=== PATIENT | male | born 1965 | race Caucasian/White ===

== ENCOUNTER 2024-10-05 13:58 | Inpatient (IN) | payer OTHER ==
[2024-10-05 14:38] LABS: Influenza A Ag Negative; Influenza B Ag Negative; SARS-CoV-2 Antigen Rapid Res Negative (Negative)
[2024-10-05 14:55] LABS: Absolute Lymphocytes (CBC) 0.5 K/uL (0.7-4.9); Absolute Monocytes 0.3 K/uL (0.1-1.3); Absolute Neutrophil 1.2 K/uL (1.8-8.0); Basophils % 0.7 % (0-1.3); Eosinophils % 0.2 % (0-4.4); Hematocrit 39.1 % (39.6-49.0); Hemoglobin 13.6 g/dL (13.6-17.9); Lymphocytes % 25.2 % (15.3-44.8); MCH 31.2 pg (27.0-35.0); MCHC 34.7 g/dL (32.0-36.0); MCV 89.7 fL (80-100); MPV 9.8 fL (7.6-11.3); Monocytes % 14.3 % (3.3-12.3); Neutrophils % 59.6 % (41.7-73.7); Nucleated Red Blood Cells % 0.2 % (0-0); Platelets 89 thou/uL (152-406); RBC Red Blood Cell Count 4.36 M/uL (4.33-5.43); Red Cell Distribution Width 13.4 % (12.1-15.2)
[2024-10-05 15:00] LABS: PT Prothrombin Time 13.4 SECONDS (10-13.0); Protime INR 1.18
--- NOTE | 2024-10-05 15:05 | RAD REPORT ---
EXAM: Chest Single View HISTORY: 59 years Male CHEST PAIN COMPARISON: None. FINDINGS: LUNGS/PLEURA: The lungs are clear. No pleural effusions or pneumothorax. No pulmonary edema. Calcifie d left midlung nodule. CARDIAC/MEDIASTINUM: The cardiac silhouette is within normal limits. UPPER ABDOMEN: No significant abnormality. BONES: No acute abnormality. LINES/TUBES/OTHER: Battery pack overlies the left hemithorax. IMPRESSION: No evidence of acute cardiopulmonary disease.
[2024-10-05 15:12] LABS: Albumin 3.5 g/dL (3.4-5.0); Anion Gap 9.8 mEq/L (5.0-15.0); Bilirubin Direct 0.2 mg/dL (0-0.2); Bilirubin Indirect, Calculated 0.4 mg/dL (0.2-0.8); Bilirubin Total 0.6 mg/dL (0.2-1.0); Globulin 3.6 g/dL (2.3-3.5); Magnesium 2.3 mg/dL (1.6-2.4); Potassium 3.8 mEq/L (3.5-5.1); Protein, Total 7.1 g/dL (6.4-8.2)
[2024-10-05] MEDS ORDERED: ASPIRIN 325 MG TAB ONE (15:25)
--- NOTE | 2024-10-05 15:28 | ER ---
Nurse's Notes [facility] Name: Devendra Vang Age: 59 yrs Sex: Male : 1965 Arrival Date: 10/05/2024 Time: 13:58 Bed 24 Private MD: Diagnosis: Chest pain, unspecified Presentation: 10/05 14:15 Chief complaint: Patient states: CP since Saturday with cough. Coronavirus screen: ss Client denies travel out of the [place] in the last 14 days. cough unrelated to allergies, difficulty breathing, fatigue, Client presents with at least one sign or symptom that may indicate coronavirus-19. Standard/surgical mask placed on the client. Ebola Screen: Patient denies travel to an Ebola-affected area in the 21 days before illness onset. Initial Sepsis Screen: Does the patient meet any 2 criteria? No. Patient's initial sepsis screen is negative. Does the patient have a suspected source of infection? No. Patient's initial sepsis screen is negative. Risk Assessment: Do you want to hurt yourself or someone else? Patient reports no desire to harm self or others. Onset of symptoms was September 30, 2024. 14:15 Method Of Arrival: Ambulatory 14:15 Acuity: RAMA 3 ss Historical: - Allergies: 14:09 No Known Allergies; ll1 - PMHx: 14:09 Hypertensive disorder; Myocardial infarction; ll1 - PSHx: 14:09 3 heart stents; ll1 - Immunization history:: Adult Immunizations up to date. - Social history:: Smoking status: . Screenin:[facility] ED Fall Risk Assessment (Adult) History of falling in the last 3 months, jb4 including since admission No falls in past 3 months (0 pts) Confusion or Disorientation No (0 pts) Intoxicated or Sedated No (0 pts) Impaired Gait No (0 pts) Mobility Assist Device Used No (0 pt) Altered Elimination No (0 pt) Score/Fall Risk Level 0 - 2 = Low Risk Oriented to surroundings, Maintained a safe environment. Abuse screen: Denies threats or abuse. Nutritional screening: No deficits noted. Tuberculosis screening: No symptoms or risk factors identified. Assessment: 15:21 General: Appears in no apparent distress. comfortable, Behavior is calm, cooperative, jb4 appropriate for age. Pain: Complains of pain in xiphoid area Pain radiates to back Pain currently is 5 out of 10 on a pain scale. Quality of pain is described as pressure. Neuro: Level of Consciousness is awake, alert, obeys commands, Oriented to person, place, time, situation. Cardiovascular: Patient's skin is warm and dry. Rhythm is sinus rhythm. Respiratory: Airway is patent Respiratory effort is even, unlabored, Respiratory pattern is regular, symmetrical. Derm: Skin is intact, Skin is pink, warm \T\ dry. Musculoskeletal: Circulation, motion, and sensation intact. Range of motion: intact in all extremities. Vital Signs: 14:15 BP 102 / 65; Pulse 75; Resp 18; Temp 98.6; Pulse Ox 96% on R/A; ss 15:21 BP 104 / 68; Pulse 69; Resp 16; Pulse Ox 98% ; jb4 16:30 BP 86 / 66; Pulse 65; Resp 16; Pulse Ox 97% on R/A; jb4 17:30 BP 101 / 57; Pulse 60; Resp 16; Pulse Ox 97% on R/A; jb4 18:30 BP 97 / 68; Pulse 59; Resp 16; Pulse Ox 97% on R/A; jb4 19:15 BP 104 / 70; Pulse 59; Resp 16; Pulse Ox 98% on R/A; jb4 19:30 BP 111 / 69; Pulse 59; Resp 15; Pulse Ox 97% on R/A; jb4 16:30 Hospitalist notified, see MAR for orders jb4 ED Course: 14:08 Patient arrived in ED. ll1 14:08 Daniella Stephen MD is Attending Physician. sp3 14:08 Arm band placed on. EKG completed in triage. Results shown to . ll1 14:13 COVID-19 Ag + Flu A+B Ag Sent. kb4 14:16 Triage completed. ss 14:47 Initial lab(s) drawn, by me, sent to lab. Inserted saline lock: 20 gauge in right kb4 antecubital area, using aseptic technique. Blood collected. Flushed with 10 mL NS. 14:51 XRAY Chest (1 view) In Process Unspecified. EDMS 15:21 Rc Grayson, RN is Primary Nurse. jb4 15:21 Patient has correct armband on for positive identification. Bed in low position. Call jb4 light in reach. Side rails up X 1. Provided Education on: need for admit. Client placed on continuous cardiac and pulse oximetry monitoring. NIBP monitoring applied. instructor programmable controllers on. Pulse ox on. 15:21 No provider procedures requiring assistance completed. Patient admitted, IV remains in jb4 place. Patient maintains SpO2 saturation greater than 95% on room air. 15:28 Yi Trotter MD is Hospitalizing Provider. sp3 Administered Medications: 15:27 Drug: Aspirin PO 325 mg PO once Route: PO; jb4 16:47 Drug: NS 0.9% IV 500 ml IV at bolus once; to be given as a bolus over 30 minutes Route: jb4 IV; Rate: bolus; Site: right antecubital; 20:24 Follow up: Response: No adverse reaction; Blood pressure is elevated; IV Status: jb4 Completed infusion Medication: 19:15 VIS not applicable for this client. jb4 Outcome: 15:28 Decision to Hospitalize by Provider. sp3 16:47 Admitted to ER Hold. Please see [facility] for further documentation. jb4 16:47 Condition: stable 16:47 Discharge instructions given to patient, Instructed on the need for admit, Demonstrated understanding of instructions, 20:25 Patient left the ED. jb4 Signatures: Dispatcher [employer] EDMS Lata Crowell, SERGIO RN Rc Marin RN RN jb4 Heidi Mills RN RN ll1 Daniella Stephen MD MD sp3 Vandana Moreira kb4
--- NOTE | 2024-10-05 15:28 | EDPHYS ---
Physician Documentation [facility] Name: Devendra Vang Age: 59 yrs Sex: Male : 1965 Arrival Date: 10/05/2024 Time: 13:58 Bed 24 Private MD: ED Physician Daniella Stephen HPI: 10/05 15:25 This 59 yrs old Unknown Male presents to ER via Ambulatory with complaints of Chest sp3 Pain, Painful Cough. 15:25 59-year-old male with history of hypertension, MA, multiple cardiac stents placed last sp3 year at [facility] in August 2023 now presents to the ED with chest pain off and on for the last 2 to 3 days particularly with exertion or work. Currently chest pain is 0-2 waxing and waning. He denies any associated symptoms other than dyspnea on exertion. ROS otherwise negative.. Historical: - Allergies: 14:09 No Known Allergies; ll1 - PMHx: 14:09 Hypertensive disorder; Myocardial infarction; ll1 - PSHx: 14:09 3 heart stents; ll1 - Immunization history:: Adult Immunizations up to date. - Social history:: Smoking status: . ROS: 15:26 Constitutional: Negative for fever, chills, and weight loss, Eyes: Negative for injury, sp3 pain, redness, and discharge, ENT: Negative for injury, pain, and discharge, Neck: Negative for injury, pain, and swelling, Abdomen/GI: Negative for abdominal pain, nausea, vomiting, diarrhea, and constipation, Back: Negative for injury and pain, MS/Extremity: Negative for injury and deformity, Skin: Negative for injury, rash, and discoloration, Neuro: Negative for headache, weakness, numbness, tingling, and seizure, Psych: Negative for depression, anxiety, suicide ideation, homicidal ideation, and hallucinations, Allergy/Immunology: Negative for hives, rash, and allergies, Endocrine: Negative for neck swelling, polydipsia, polyuria, polyphagia, and marked weight changes, Hematologic/Lymphatic: Negative for swollen nodes, abnormal bleeding, and unusual bruising, 15:26 All other systems are negative, Exam: 15:27 Constitutional: This is a well developed, well nourished patient who is awake, alert, sp3 and in no acute distress. Head/Face: Normocephalic, atraumatic. Eyes: Pupils equal round and reactive to light, extra-ocular motions intact. Lids and lashes normal. Conjunctiva and sclera are non-icteric and not injected. Cornea within normal limits. Periorbital areas with no swelling, redness, or edema. Neck: Trachea midline, no thyromegaly or masses palpated, and no cervical lymphadenopathy. Supple, full range of motion without nuchal rigidity, or vertebral point tenderness. No Meningismus. Chest/axilla: Normal chest wall appearance and motion. Nontender with no deformity. No lesions are appreciated. Cardiovascular: Regular rate and rhythm with a normal S1 and S2. No gallops, murmurs, or rubs. Normal PMI, no JVD. No pulse deficits. Respiratory: Lungs have equal breath sounds bilaterally, clear to auscultation and percussion. No rales, rhonchi or wheezes noted. No increased work of breathing, no retractions or nasal flaring. Abdomen/GI: Soft, non-tender, with normal bowel sounds. No distension or tympany. No guarding or rebound. No evidence of tenderness throughout. Back: No spinal tenderness. No costovertebral tenderness. Full range of motion. Skin: Warm, dry with normal turgor. Normal color with no rashes, no lesions, and no evidence of cellulitis. MS/ Extremity: Pulses equal, no cyanosis. Neurovascular intact. Full, normal range of motion. Neuro: Awake and alert, GCS 15, oriented to person, place, time, and situation. Cranial nerves II-XII grossly intact. Motor strength 5/5 in all extremities. Sensory grossly intact. Cerebellar exam normal. Normal gait. Psych: Awake, alert, with orientation to person, place and time. Behavior, mood, and affect are within normal limits. 15:27 ECG was reviewed by the Attending Physician. EKG demonstrates normal sinus rhythm at 74 bpm with normal intervals, normal QRS, normal axis, T wave inversions inferiorly in leads III and aVF and nonspecific diffuse ST/T changes. Vital Signs: 14:15 BP 102 / 65; Pulse 75; Resp 18; Temp 98.6; Pulse Ox 96% on R/A; ss 15:21 BP 104 / 68; Pulse 69; Resp 16; Pulse Ox 98% ; jb4 16:30 BP 86 / 66; Pulse 65; Resp 16; Pulse Ox 97% on R/A; jb4 17:30 BP 101 / 57; Pulse 60; Resp 16; Pulse Ox 97% on R/A; jb4 18:30 BP 97 / 68; Pulse 59; Resp 16; Pulse Ox 97% on R/A; jb4 19:15 BP 104 / 70; Pulse 59; Resp 16; Pulse Ox 98% on R/A; jb4 19:30 BP 111 / 69; Pulse 59; Resp 15; Pulse Ox 97% on R/A; jb4 16:30 Hospitalist notified, see MAR for orders jb4 MDM: 14:10 Medical Screening Exam initiated sp3 15:27 Data reviewed: vital signs, nurses notes, lab test result(s), EKG, radiologic studies. sp3 ED course: 59-year-old male with chest pain. Differential diagnosis includes acute coronary syndrome, musculoskeletal pain, angina, GI related, among others. I am not highly suspicious of sepsis or shock. EKG shows no STEMI. Will place in observation for continued monitoring, cardiology consultation and serial troponin and EKGs.. 10/05 14:11 Order name: Basic Metabolic Panel; Complete Time: 15:14 sp3 10/05 14:11 Order name: CBC with Diff; Complete Time: 16:01 sp3 10/05 14:11 Order name: LFT's; Complete Time: 15:14 sp3 10/05 14:11 Order name: Magnesium; Complete Time: 15:14 sp3 10/05 14:11 Order name: NT PRO-BNP; Complete Time: 15:14 sp3 10/05 14:11 Order name: PT-INR; Complete Time: 15:06 sp3 10/05 14:11 Order name: Troponin HS; Complete Time: 15:14 sp3 10/05 14:11 Order name: COVID-19 Ag + Flu A+B Ag; Complete Time: 15:06 sp3 10/05 15:56 Order name: CBC Smear Scan; Complete Time: 16:01 EDMS 10/05 16:23 Order name: Basic Metabolic Panel EDMS 10/05 16:23 Order name: Basic Metabolic Panel EDMS 10/05 16:23 Order name: Basic Metabolic Panel EDMS 10/05 16:23 Order name: Basic Metabolic Panel EDMO 10/05 16:23 Order name: Basic Metabolic Panel EDMS 10/05 16:23 Order name: CBC with Automated Diff EDMS 10/05 16:23 Order name: CBC with Automated Diff EDMS 10/05 16:23 Order name: CBC with Automated Diff EDMS 10/05 16:23 Order name: CBC with Automated Diff EDMS 10/05 16:23 Order name: CBC with Automated Diff EDMS 10/05 16:23 Order name: T4 Free EDMS 10/05 16:23 Order name: T4 Free EDMS 10/05 16:23 Order name: Thyroid Stimulating Hormone EDMS 10/05 16:23 Order name: Thyroid Stimulating Hormone EDMS 10/05 16:23 Order name: Troponin High Sensitivity EDMS 10/05 16:23 Order name: Troponin High Sensitivity; Complete Time: 20:14 EDMS 10/05 16:23 Order name: Troponin High Sensitivity EDMS 10/05 14:11 Order name: XRAY Chest (1 view); Complete Time: 15:06 sp3 10/05 16:20 Order name: Echo with Doppler EDMS 10/05 14:11 Order name: EKG; Complete Time: 14:11 sp3 10/05 14:11 Order name: Cardiac monitoring; Complete Time: 15:16 sp3 10/05 14:11 Order name: EKG - Nurse/Tech; Complete Time: 14:12 sp3 10/05 14:11 Order name: IV Saline Lock; Complete Time: 15:16 sp3 10/05 14:11 Order name: Labs collected and sent; Complete Time: 15:16 sp3 10/05 14:11 Order name: O2 Per Protocol; Complete Time: 15:16 sp3 10/05 14:11 Order name: O2 Sat Monitoring; Complete Time: 15:16 sp3 Administered Medications: 15:27 Drug: Aspirin PO 325 mg PO once Route: PO; jb4 16:47 Drug: NS 0.9% IV 500 ml IV at bolus once; to be given as a bolus over 30 minutes Route: jb4 IV; Rate: bolus; Site: right antecubital; 20:24 Follow up: Response: No adverse reaction; Blood pressure is elevated; IV Status: jb4 Completed infusion Disposition Summary: 10/05/24 15:28 Hospitalization Ordered Notes: Hospitalization Status: Observation sp3 Provider: Yi Trotter sp3 Condition: Stable sp3 Problem: an acute exacerbation sp3 Symptoms: have worsened sp3 Bed/Room Type: Standard sp3 Location: Telemetry/MedSurg (observation)(10/05/24 19:10) [facility] Room Assignment: [facility](10/05/24 19:10) [facility] Diagnosis - Chest pain, unspecified sp3 Forms: - Medication Reconciliation Form sp3 - SBAR form sp3 - Leadership Thank You Letter sp3 Signatures: Dispatcher [employer] EDMS Lata Crowell, RN RN ss Rc Grayson RN RN jb4 Heidi Mills RN RN ll1 Daniella Stephen MD MD sp3 Betzaida Galarza RN RN kb3 Serafin Carlson MD MD 2 Lisette Gillespie [facility] Corrections: (The following items were deleted from the chart) 14:11 14:11 BASIC METABOLIC PANEL+C.LAB.BRZ ordered. EDMS EDMS 14:11 14:11 CBC+H.LAB.BRZ ordered. EDMS EDMS 14:11 14:11 HEPATIC FUNCTION+C.LAB.BRZ ordered. EDMS EDMS 14:11 14:11 MAGNESIUM+C.LAB.BRZ ordered. EDMS EDMS 14:11 14:11 PROBNP+C.LAB.BRZ ordered. EDMS EDMS 14:11 14:11 PROTIME (+INR)+COAG.LAB.BRZ ordered. EDMS EDMS 14:11 14:11 Troponin High Sensitivity+C.LAB.BRZ ordered. EDMS EDMS 14:11 14:11 COVID-19 Ag + Flu A+B Ag+I.LAB.BRZ ordered. EDMS EDMS 16:20 15:28 Telemetry/MedSurg (observation) sp3 kb3 16:20 15:28 sp3 kb3 19:10 16:20 [facility] ER HOLD kb3 kmf 19:10 16:20 ERHOLD- kb3 kmf
[2024-10-05 15:56] LABS: Blood Morphology Comment NOT SEEN (NOT SEEN); Platelet Estimate DECR; White Blood Cell Scan OK (OK)
[2024-10-05] MEDS ORDERED: NA CHLORIDE 0.9% 500 ML ONE (16:43)
--- NOTE | 2024-10-05 17:04 | P.HP ---
Certification for Inpatient Patient admitted to: Observation With expected LOS: <2 Midnights Patient will require the following post-hospital care: None Practitioner: I am a practitioner with admitting privileges, knowledge of patient current condition, hospital course, and medical plan of care. Services: Services provided to patient in accordance with Admission requirements found in Title 42 Section 412.3 of the Code of Federal Regulations <Tomy Scott - Last Filed: 10/05/24 17:01> Patient History Date of Service: 10/05/24 Reason for admission: Chest pain History of Present Illness: 59-year-old male with history of hypertension, CAD, lupus, seizure disorder presents to the emergency department chief complaint of chest pain, shortness of breath. He reports that symptoms have been intermittent in nature and ongoing since late last week worse the past couple of days. Of note he was seen at [facility] in [place] and had 3 stents placed in August 2023. He was evaluated in the emergency department his initial high-sensitivity troponin was 24 chest x-ray is negative for acute findings, patient does have t hrombocytopenia with a platelet count of 89 he reports this is similar to his baseline. Chest x-ray is negative for acute findings, ED provider wishes to admit patient for further evaluation and management. - Past Medical/Surgical History -: Lupus -: CAD -: Hypertension -: Neuropathy -: Seizure disorder -: Vagal nerve stimulator -: Brain surgery-trauma -: Orthopedic surgeries Psychosocial/ Personal History: Lives at home, alone - Social History Alcohol use: No CD- Drugs: No Caffeine use: Yes Place of Residence: Home <Tomy Scott - Last Filed: 10/05/24 17:01> Date of Service: 10/05/24 <Yi Trotter - Last Filed: 10/11/24 00:17> Review of Systems 10-point ROS is otherwise unremarkable Respiratory: Shortness of Breath Cardiovascular: Chest Pain <Tomy Scott - Last Filed: 10/05/24 17:01> Physical Examination - Physical Exam General: Alert, In no apparent distress, Oriented x3 HEENT: Atraumatic, PERRLA, EOMI Neck: Supple, 2+ carotid pulse no bruit, No LAD Respiratory: Clear to auscultation bilaterally, Normal air movement Cardiovascular: Regular rate/rhythm, Normal S1 S2 Gastrointestinal: Normal bowel sounds Neurological: Normal gait, Normal speech, Normal strength at 5/5 x4 extr, Normal tone, Normal affect Lymphatics: No axilla or inguinal lymphadenopathy - Studies Laboratory Data (last 24 hrs) 10/05/24 10/05/24 10/05/24 14:45 14:45 14:45 WBC 2.10 L Hgb 13.6 Hct 39.1 L Plt Count 89 L PT 13.4 H INR 1.18 Sodium 135 L Potassium 3.8 BUN 13 Creatinine 1.19 Glucose 114 H Magnesium 2.3 Total Bilirubin 0.6 AST 21 ALT 17 Alkaline Phosphatase 79 <Tomy Scott - Last Filed: 10/05/24 17:01> Assessment and Plan - Plan Assessment: Chest pain rule out ACShistory of CAD Lupus Thrombocytopenia Seizure disorder Hypertension Hyperlipidemia Neuropathy Plan: Chest pain rule out ACShistory of CAD Had 3 stents in August 2023 at [facility] Continue Effient, aspirin, statin, metoprolol Questionable history of CHF, he does take Entresto but not on any diuretics No previous echo is available for review, echocardiogram ordered Cardiology consulted will trend troponins and monitor on telemetry Pain-free at this time Lupus Thrombocytopenia Near baseline platelets per patient Continue CellCept, will need to take his own Daily CBC Seizure disorder Continue XCOPI Patient will need to take his own as we do not have this medication Last seizure around 1 month ago Hypertension Hyperlipidemia Neuropathy Home medications continued with hold parameters DVT PPX: SCDs given thrombocytopenia Code status: Full code Discharge Plan: Home Plan to discharge in: 24 Hours - Advance Directives Does patient have a Living Will: No Does patient have a Durable POA for Healthcare: No - Code Status/Comfort Care Code Status Assessed: Yes (Full code) Critical Care: No Time Spent Managing Pts Care (In Minutes): 65 <Tomy Scott - Last Filed: 10/05/24 17:01> Date of Service: 10/05/24 Patient was seen and examined. Events of the last 24 hours have been noted. Spoke with with CARTER regarding patient's clinical picture after evaluating and examining the patient independently. I performed a substantial part of the MDM during this patient's care today. I personally made or approved the documented management plan and acknowledge its risk of complications. I agree with the findings and documentation provided in the CARTER's notes. <Yi Trotter - Last Filed: 10/11/24 00:17>
[2024-10-05 17:38] VITALS: BMI 29.0
[2024-10-05] MEDS: FLU (Fluarix Triv) TS24-25(6MOS UP)/PF 45 MCG/0.5 ML Syringe IM ONE (19:00)
[2024-10-05] MEDS: SACUBITRIL/VALSARTAN 24/26 MG TAB PO SCH (20:55)
[2024-10-05] MEDS: ATORVASTATIN 40 MG TAB PO SCH (20:55)
[2024-10-05] MEDS: FOLIC ACID 1 MG TABLET PO SCH (20:55)
[2024-10-05] MEDS: GABAPENTIN 300 MG CAP PO SCH (20:55)
[2024-10-05] MEDS: ALPRAZOLAM 0.5 MG TABLET PO PRN (22:09)
[2024-10-06] MEDS: METOPROLOL XL 100 MG TAB PO SCH (06:00)
[2024-10-06 06:50] LABS: Absolute Lymphocytes (CBC) 0.4 K/uL (0.7-4.9); Absolute Monocytes 0.2 K/uL (0.1-1.3); Absolute Neutrophil 0.8 K/uL (1.8-8.0); Basophils % 0.7 % (0-1.3); Eosinophils % 1.9 % (0-4.4); Hematocrit 35.5 % (39.6-49.0); Hemoglobin 12.6 g/dL (13.6-17.9); Lymphocytes % 28.7 % (15.3-44.8); MCH 31.6 pg (27.0-35.0); MCHC 35.5 g/dL (32.0-36.0); MCV 88.9 fL (80-100); MPV 9.7 fL (7.6-11.3); Monocytes % 16.4 % (3.3-12.3); Neutrophils % 52.3 % (41.7-73.7); Nucleated Red Blood Cells % 0.2 % (0-0); Platelets 66 thou/uL (152-406); RBC Red Blood Cell Count 3.99 M/uL (4.33-5.43); Red Cell Distribution Width 13.6 % (12.1-15.2)
[2024-10-06 07:24] LABS: Anion Gap 7.5 mEq/L (5.0-15.0); Potassium 3.5 mEq/L (3.5-5.1); Thyroid Stimulating Hormone 2.01 uIU/mL (0.358-3.740); Troponin High Sensitivity 21.8 pg/mL (<58.9)
[2024-10-06] MEDS: ISOSORBIDE MONO SR 60 MG TAB PO SCH (08:52)
[2024-10-06] MEDS: ASPIRIN EC 81 MG TAB PO SCH (08:52)
[2024-10-06] MEDS: PRASUGREL (EFFIENT) 10 MG TAB PO SCH (08:54)
[2024-10-06] MEDS ORDERED: HYDROCODONE/APAP 10/325 TAB PO PRN (09:04)
[2024-10-06] MEDS ORDERED: ALPRAZOLAM 0.5 MG TABLET PO PRN (09:04)
--- NOTE | 2024-10-06 11:58 | P.CNS ---
Date of Consult: 10/06/24 Chief Complaint: Chest pain History of Present Illness: Patient with PMH of CAD. PCI x3, almost a year ago at [facility], presented with worsening chest pain for the last week, angina, mid chest, work related but can happen at rest, frank other cardiac symptoms. Allergies No Known Allergies Allergy (Unverified 10/05/24 17:33) Home medications list reviewed: Yes Home Medications: Alprazolam [Xanax] 1 tab PO BEDTIME PRN 10/06/24 Atorvastatin Calcium [Lipitor] 1 tab PO DAILY 10/06/24 Cenobamate [Xcopri] 1 tab PO DAILY 10/06/24 Folic Acid 1 tab PO BID 10/06/24 Hydrocodone 10/APAP 325 [[place]pton 10/325*] 1 tab PO Q6H PRN 10/06/24 Metoprolol Succinate 1 tab PO DAILY 10/06/24 Potassium Chloride 1 tab PO DAILY 10/06/24 Sacubitril/Valsartan [Entresto 24 mg-26 mg Tablet] 1 tab PO BID 10/06/24 - Past Medical/Surgical History -: Lupus -: CAD -: Hypertension -: Neuropathy -: Seizure disorder -: Vagal nerve stimulator -: Brain surgery-trauma -: Orthopedic surgeries Psychosocial/ Personal History: Lives at home, alone - Social History Alcohol use: No CD- Drugs: No Caffeine use: Yes Place of Residence: Home Review of Systems 10-point ROS is otherwise unremarkable Physical Examination Temp Pulse Resp BP Pulse Ox 97.8 F 62 18 108/53 L 96 10/06/24 08:00 10/06/24 08:00 10/06/24 08:00 10/06/24 08:00 10/06/24 08:00 General: Alert, In no apparent distress HEENT: Atraumatic, PERRLA, Mucous membr. moist/pink, EOMI, Sclerae nonicteric Neck: Supple, 2+ carotid pulse no bruit, No LAD, Without JVD or thyroid abnormality Respiratory: Clear to auscultation bilaterally, Normal air movement Cardiovascular: Regular rate/rhythm, Normal S1 S2 Gastrointestinal: Normal bowel sounds, No tenderness Musculoskeletal: No tenderness Integumentary: No rashes Neurological: Normal gait, Normal speech, Normal tone, Normal affect Lymphatics: No axilla or inguinal lymphadenopathy Laboratory Data (last 24 hrs) 10/05/24 10/05/24 10/05/24 14:45 14:45 14:45 WBC 2.10 L Hgb 13.6 Hct 39.1 L Plt Count 89 L PT 13.4 H INR 1.18 Sodium 135 L Potassium 3.8 BUN 13 Creatinine 1.19 Glucose 114 H Magnesium 2.3 Total Bilirubin 0.6 AST 21 ALT 17 Alkaline Phosphatase 79 - Problems (1) Unstable angina Current Visit: Yes Status: Acute Plan: Patient with PMH of CAD, PCI x3 having unstable angina NPO after midnight for coronary angiogram in am ASA 81 mg daily Effient 10 mg daily Lipitor 40 mg daily get echo
[2024-10-06] MEDS: POTASSIUM CL SA 10 MEQ TAB PO ONE (12:18)
--- NOTE | 2024-10-06 12:52 | RAD REPORT ---
EXAMINATION: CTA CHEST PE CLINICAL INDICATION: Hemoptysis TECHNIQUE: 100 cc 370 Isovue administered intravenously. This examination was performed according to an angiographic protocol with 3D post-processing. This involves 3D reconstructions, MIPs, volume rendered images and/or shaded surface rendering. One or more of the following dose reduction techniqu es were used: Automated exposure control, adjustment of the mA and/or kV according to patient size, and/or iterative reconstruction. Unless otherwise specified, incidental findings do not require dedic ated imaging follow-up. [id number]. COMPARISON: No prior exam. FINDINGS: A pulmonary embolus is not seen. An aortic aneurysm not noted. No pleural effusion. No pericardial effusion. Calcified granuloma left lung. Mild bilateral hilar lymphadenopathy IMPRESSION: No evidence of a pulmonary embolism Mild bilateral hilar lymphadenopathy may be reactive. As malignancy can also have this appearance it is recommended that the patient have a follow-up CT scan in 3 months for reevaluation.
[2024-10-06 12:58] LABS: Differential Total Cells Count 100; Segmented Neutrophils 49 % (40-80)
[2024-10-06 12:59] LABS: Atypical Lymphocytes 2 %; Band Neutrophils 6 % (0-1); Blood Morphology Comment NOT SEEN (NOT SEEN); Eosinophils 1 % (0-3); Lymphocytes 26 % (15-42); Monocytes 16 % (0-10); Platelet Estimate DECR
--- NOTE | 2024-10-06 13:56 | ECHO ---
HEIGHT: 6 ft 1 in WEIGHT: 220 lb 0 oz DATE OF STUDY: 10/06/[address]: Tomy Scott NP 2-DIMENSIONAL: YES M.MODE: YES DOPPLER: YES COLOR FLOW: YES TDS: PORTABLE: YES DEFINITY: BUBBLE STUDY: DIAGNOSIS: CHEST PAIN CARDIAC HISTORY: CATHERIZATION: YES SURGERY: NO PROSTHETIC VALVE: NO PACEMAKER: NO MEASUREMENTS (cm) DIASTOLIC (NORMALS) SYSTOLIC (NORMALS) IVSd 1.3 (0.6-1.2) LA Diam 3.0 (1.9-4.0) LVEF 50-55% LVIDd 3.8 (3.5-5.7) LVIDs 2.8 (2.0-3.5) %FS 27% LVPWd 1.3 (0.6-1.2) Ao Diam 3.0 (2.0-3.7) 2 DIMENSIONAL ASSESSMENT: RIGHT ATRIUM: NORMAL LEFT ATRIUM: NORMAL RIGHT VENTRICLE: NORMAL LEFT VENTRICLE: NORMAL TRICUSPID VALVE: TRACE TRICUSPID REGURGITATION MITRAL VALVE: TRACE MITRAL REGURGITATION PULMONIC VALVE: NORMAL AORTIC VALVE: NORMAL PERICARDIAL EFFUSION: NONE AORTIC ROOT: NORMAL LEFT VENTRICULAR WALL MOTION: NORMAL DOPPLER/COLOR FLOW: GRADE I DIASTOLIC DYSFUNCTION COMMENTS: 1. NORMAL LEFT VENTRICULAR SYSTOLIC FUNCTION, EJECTION FRACTION 50-55%, NORMAL WALL MOTION 2. GRADE I DIASTOLIC DYSFUNCTION TECHNOLOGIST: PAIGE VASQUEZ
[2024-10-06] MEDS: METHYLPREDNISOLONE 125 MG INJ IV SCH (17:45)
--- NOTE | 2024-10-06 18:02 | P.PN ---
Date of Service: 10/06/24 Subjective Awake, feeling well reports coughing bloody sputum thrombocytopenic CTA chest reports no PE ROS 10 point ROS as noted above, otherwise negative Physical Exam General: Alert and Oriented x3, NAD HEENT: Atraumatic, PERRLA, EOMI Neck: Supple, 2+ carotid pulse no bruit, No LAD Respiratory: Clear BBS, Normal air movement, on RA Cardiovascular: RRR, Normal S1 S2 Gastrointestinal: Normal bowel sounds Neurological: Normal gait, Normal speech, Normal strength at 5/5 x4 extr, Normal tone, Normal affect Lymphatics: No axilla or inguinal lymphadenopathy Vitals Reviewed Problem list Chest pain rule out ACShistory of CAD Mild bilateral hilar lymphadenopathy Lupus Thrombocytopenia Seizure disorder Hypertension Hyperlipidemia Neuropathy Assessment and Plan Chest pain rule out ACShistory of CAD Mild bilateral hilar lymphadenopathy Had 3 stents in August 2023 at [facility] Continue Effient, aspirin, statin, metoprolol Questionable history of CHF, he does take Entresto but not on any diuretics No previous echo is available for review, echocardiogram ordered Cardiology consulted - monitoring platelets for LHC in the AM Pain-free at this time NPO after midnight CTA chest reports "Mild bilateral hilar lymphadenopathy may be reactive. As malignancy can also have this appearance it is recommended that the patient have a follow-up CT scan in 3 months for reevaluation." Lupus Thrombocytopenia Near baseline platelets per patient Continue CellCept, will need to take his own Daily CBC Seizure disorder Continue XCOPI Patient will need to take his own as we do not have this medication Last seizure around 1 month ago Hypertension Hyperlipidemia Neuropathy Home medications continued with hold parameters DVT PPX: SCDs given thrombocytopenia Code status: Full code Discharge Plan: Home Plan to discharge in: 24 Hours <Pat Cornejo - Last Filed: 10/06/24 17:48> Patient was seen and examined. Events of the last 24 hours have been noted. Spoke with with CARTER regarding patient's clinical picture after evaluating and examining the patient independently. I performed a substantial part of the MDM during this patient's care today. I personally made or approved the documented management plan and acknowledge its risk of complications. I agree with the findings and documentation provided in the CARTER's notes. Patient has done well during hospital stay. Clinically, patient is much better. At this time, patient is stable for discharge home. Patient will follow-up with consultants and PCP as an outpatient. <Yi Trotter - Last Filed: 10/11/24 00:14>
[2024-10-06] MEDS ORDERED: FOLIC ACID 1 MG TABLET PO SCH (21:00)
[2024-10-07] MEDS: PIPER TAZO 3.375 GM in NA CHLORIDE 0.9% 100 ML IV SCH (00:12)
[2024-10-07] MEDS: BENZONATATE 100 MG CAP PO PRN (00:15)
[2024-10-07 07:28] LABS: Absolute Lymphocytes (CBC) 0.2 K/uL (0.7-4.9); Absolute Monocytes 0.1 K/uL (0.1-1.3); Absolute Neutrophil 0.3 K/uL (1.8-8.0); Basophils % 0.4 % (0-1.3); Eosinophils % 0.2 % (0-4.4); Hematocrit 38.4 % (39.6-49.0); Hemoglobin 13.4 g/dL (13.6-17.9); Lymphocytes % 35.7 % (15.3-44.8); MCH 31.1 pg (27.0-35.0); MCHC 34.9 g/dL (32.0-36.0); MCV 89.3 fL (80-100); MPV 9.5 fL (7.6-11.3); Monocytes % 12.3 % (3.3-12.3); Neutrophils % 51.4 % (41.7-73.7); Nucleated Red Blood Cells % 0.3 % (0-0); Platelets 77 thou/uL (152-406); Red Cell Distribution Width 13.3 % (12.1-15.2)
[2024-10-07 07:46] LABS: Anion Gap 8.5 mEq/L (5.0-15.0); Magnesium 2.1 mg/dL (1.6-2.4); Phosphorus 3.4 mg/dL (2.5-4.9); Potassium 4.5 mEq/L (3.5-5.1)
[2024-10-07 08:57] LABS: Band Neutrophils 7 % (0-1); Differential Total Cells Count 58; Segmented Neutrophils 43 % (40-80)
[2024-10-07 08:58] LABS: Lymphocytes 36 % (15-42); Monocytes 12 % (0-10); Platelet Estimate DECR
[2024-10-07 08:59] LABS: Blood Morphology Comment NOT SEEN (NOT SEEN)
[2024-10-07] MEDS ORDERED: ATORVASTATIN 40 MG TAB PO SCH (09:00)
--- NOTE | 2024-10-07 12:13 | P.PN ---
Subjective Date of Service: 10/07/24 Chief Complaint: Chest pain Subjective: No new changes, No C/O voiced, Tolerating diet, Ambulating, Improving Review of Systems 10-point ROS is otherwise unremarkable Physical Examination - Vital Signs Temperature: 98.4 F Blood Pressure: 131/72 Pulse: 69 Respirations: 16 Pulse Ox (%): 97 - Physical Exam General: Alert, In no apparent distress HEENT: Atraumatic, PERRLA, EOMI Neck: Supple, JVD not distended Respiratory: Clear to auscultation bilaterally, Normal air movement Cardiovascular: Regular rate/rhythm, Normal S1 S2 Gastrointestinal: Normal bowel sounds, No tenderness Musculoskeletal: No tenderness Integumentary: No rashes Neurological: Normal speech, Normal tone, Normal affect Lymphatics: No axilla or inguinal lymphadenopathy - Studies Laboratory Data (last 24 hrs) 10/06/24 06:16 WBC 1.40 L Hgb 12.6 L Hct 35.5 L Plt Count 66 L Medications List Reviewed: Yes Assessment And Plan - Current Problems (Diagnosis) (1) Unstable angina Current Visit: Yes Status: Acute Plan: Patient with PMH of CAD, PCI x3 having unstable angina, patient was suppose to have coronary angiogram done but blood work shows pancytopenia with very low WBC counts, doing the coronary angiogram will be risky for patient at this time, advise to have Hematology/Oncology consult ASA 81 mg daily Effient 10 mg daily Lipitor 40 mg daily Echo shows normal LV systolic function, wall motion and Grade 1 DD.
--- NOTE | 2024-10-07 12:27 | P.PN ---
Date of Service: 10/07/24 Subjective Sleeping but awakens easily Pancytopenic, will continue to monito Awaiting [facility] and Dr. Ramsay consult ROS 10 point ROS as noted above, otherwise negative Physical Exam General: AAO x3, NAD HEENT: Atraumatic, PERRLA, EOMI Neck: Supple, 2+ carotid pulse no bruit, No LAD Respiratory: Clear BBS, Normal air movement, on RA Cardiovascular: NSR, Normal S1 S2 Gastrointestinal: Normal bowel sounds Neurological: Normal speech, Normal strength at 5/5 x4 extr Lymphatics: No axilla or inguinal lymphadenopathy Vitals Reviewed Problem list Chest pain rule out ACShistory of CAD Mild bilateral hilar lymphadenopathy Lupus Pancytopenia Thrombocytopenia Leukopenia Seizure disorder Hypertension Hyperlipidemia Neuropathy Assessment and Plan Chest pain rule out ACShistory of CAD Mild bilateral hilar lymphadenopathy Had 3 stents in August 2023 at [facility] Continue Effient, aspirin, statin, metoprolol Questionable history of CHF, he does take Entresto but not on any diuretics No previous echo is available for review, echocardiogram ordered Cardiology consulted - monitoring platelets for [facility] Chest Pain-free at this time NPO after midnight CTA chest reports "Mild bilateral hilar lymphadenopathy may be reactive. As malignancy can also have this appearance it is recommended that the patient have a follow-up CT scan in 3 months for reevaluation." Pancytopenia Thrombocytopenia Leukopenia -Dr. Ramsay consulted -Daily CBC -Reverse precautions Lupus Continue CellCept, will need to take his own Seizure disorder Continue XCOPI Patient will need to take his own as we do not have this medication Last seizure around 1 month ago Hypertension Hyperlipidemia Neuropathy Home medications continued with hold parameters DVT PPX: SCDs given thrombocytopenia Code status: Full code Discharge Plan: Home Plan to discharge in: 24 Hours <Pat Cornejo - Last Filed: 10/07/24 12:13> Patient was seen and examined. Events of the last 24 hours have been noted. Spoke with with CARTER regarding patient's clinical picture after evaluating and examining the patient independently. I performed a substantial part of the MDM during this patient's care today. I personally made or approved the documented management plan and acknowledge its risk of complications. I agree with the findings and documentation provided in the CARTER's notes. <Yi Trotter - Last Filed: 10/11/24 00:13>
--- NOTE | 2024-10-07 12:36 | EKG ---
Test Date: 2024-10-05 Test Time: 14:06:57 Youth Pastor: CHARLI MEASUREMENT RESULTS: Intervals: Rate: 74 MO: 166 QRSD: 86 QT: 384 QTc: 426 Elizabeth: P: 27 MO: 166 QRS: -20 T: -10 INTERPRETIVE STATEMENTS: Normal sinus rhythm Cannot rule out Anterior infarct, age undetermined Abnormal ECG Compared to ECG 06/09/2006 06:07:35 Myocardial infarct finding now present Sinus arrhythmia no longer present T-wave abnormality no longer present Electronically Signed On 10-07-24 12:27:14 CDT by Saulo Farah
[2024-10-07] MEDS: METHYLPREDNISOLONE 125 MG INJ IV SCH (20:23)
[2024-10-08 06:49] LABS: Absolute Lymphocytes (CBC) 0.4 K/uL (0.7-4.9); Absolute Monocytes 0.3 K/uL (0.1-1.3); Absolute Neutrophil 2.7 K/uL (1.8-8.0); Basophils % 0.1 % (0-1.3); Hemoglobin 13.5 g/dL (13.6-17.9); Lymphocytes % 11.2 % (15.3-44.8); MCH 30.8 pg (27.0-35.0); MCHC 34.5 g/dL (32.0-36.0); MCV 89.2 fL (80-100); MPV 10.3 fL (7.6-11.3); Monocytes % 8.1 % (3.3-12.3); Neutrophils % 80.6 % (41.7-73.7); Platelets 93 thou/uL (152-406); RBC Red Blood Cell Count 4.37 M/uL (4.33-5.43); Red Cell Distribution Width 13.1 % (12.1-15.2)
[2024-10-08 06:56] LABS: Anion Gap 8.1 mEq/L (5.0-15.0); Magnesium 2.3 mg/dL (1.6-2.4); Phosphorus 3.6 mg/dL (2.5-4.9); Potassium 4.1 mEq/L (3.5-5.1)
--- NOTE | 2024-10-08 13:27 | P.PN ---
Subjective Date of Service: 10/08/24 Chief Complaint: Chest pain Subjective: No new changes, No C/O voiced, Tolerating diet, Ambulating, Improving Review of Systems 10-point ROS is otherwise unremarkable Physical Examination - Vital Signs Temperature: 97.6 F Blood Pressure: 114/65 Pulse: 65 Respirations: 16 Pulse Ox (%): 98 - Physical Exam General: Alert, In no apparent distress HEENT: Atraumatic, PERRLA, EOMI Neck: Supple, JVD not distended Respiratory: Clear to auscultation bilaterally, Normal air movement Cardiovascular: Regular rate/rhythm, Normal S1 S2 Gastrointestinal: Normal bowel sounds, No tenderness Musculoskeletal: No tenderness Integumentary: No rashes Neurological: Normal speech, Normal tone, Normal affect Lymphatics: No axilla or inguinal lymphadenopathy - Studies Medications List Reviewed: Yes Assessment And Plan - Current Problems (Diagnosis) (1) Unstable angina Current Visit: Yes Status: Acute Plan: Patient with PMH of CAD, PCI x3 having unstable angina, patient was suppose to have coronary angiogram done but blood work shows pancytopenia with very low WBC counts, doing the coronary angiogram will be risky for patient at this time, advise to have Hematology/Oncology consult get nuclear stress test (Lexiscan in am) ASA 81 mg daily Effient 10 mg daily Lipitor 40 mg daily Echo shows normal LV systolic function, wall motion and Grade 1 DD.
[2024-10-09 06:43] LABS: Anion Gap 8.2 mEq/L (5.0-15.0); Magnesium 2.2 mg/dL (1.6-2.4); Potassium 4.2 mEq/L (3.5-5.1)
[2024-10-09 06:52] LABS: Absolute Lymphocytes (CBC) 0.5 K/uL (0.7-4.9); Absolute Monocytes 0.2 K/uL (0.1-1.3); Absolute Neutrophil 2.8 K/uL (1.8-8.0); Basophils % 0.1 % (0-1.3); Hematocrit 36.3 % (39.6-49.0); Hemoglobin 12.5 g/dL (13.6-17.9); MCH 31.2 pg (27.0-35.0); MCHC 34.6 g/dL (32.0-36.0); MCV 90.4 fL (80-100); MPV 9.8 fL (7.6-11.3); Monocytes % 6.6 % (3.3-12.3); Neutrophils % 79.3 % (41.7-73.7); Nucleated Red Blood Cells % 0.1 % (0-0); Platelets 84 thou/uL (152-406); RBC Red Blood Cell Count 4.02 M/uL (4.33-5.43)
[2024-10-09] MEDS ORDERED: REGADENOSON 0.4 MG/5 ML SYR IV ONE (13:52)
--- NOTE | 2024-10-09 14:32 | RAD REPORT ---
EXAM: Nuclear medicine cardiac perfusion examination with ejection fraction HISTORY: Chest pain Chest pain r/o ACS TECHNIQUE: Rest images: 10.8 mCi technetium 99m sestamibi Stress images: 30.9 mCi of technetium 99m sestamibi COMPARISON: None. FINDINGS: Tomographic images: Mild decrease radiopharmaceutical accumulation involving the inferior wall with s tress noted. This suggests mild stress-induced ischemia is present. Area of diminished radiopharmaceutical accumulation also seen laterally which is fixed presumably related to prior infar ct. Ejection fraction of 62%. EDV: 149 mL ESV: 56 mL LHR: 0.3 TID: 0.94 IMPRESSION: Mild stress-induced ischemia suspected inferior wall as described. Recommend correlation with EKG ebonie chapman.
--- NOTE | 2024-10-09 18:30 | P.PN ---
Date of Service: 10/08/24 Subjective Awake, feeling better likely stress test in the AM ROS 10 point ROS as noted above, otherwise negative Physical Exam General: Alert and oriented x3, NAD HEENT: Atraumatic, PERRLA, EOMI Respiratory: nonlaborded breathing, Normal air movement, on RA Cardiovascular: regular rate and rhythm, Normal S1 S2 Gastrointestinal: Normal bowel sounds Neurological: Normal speech, Normal strength at 5/5 x4 extr Lymphatics: No axilla or inguinal lymphadenopathy Vitals Reviewed Problem list Chest pain rule out ACShistory of CAD Mild bilateral hilar lymphadenopathy Lupus Pancytopenia Thrombocytopenia Leukopenia Seizure disorder Hypertension Hyperlipidemia Neuropathy Assessment and Plan Chest pain rule out ACShistory of CAD Mild bilateral hilar lymphadenopathy -Had 3 stents in August 2023 at [facility] -Continue Effient, aspirin, statin, metoprolol -Questionable history of CHF, he does take Entresto but not on any diuretics -No previous echo is available for review, echocardiogram ordered -Cardiology consulted - stress test in the AM -Chest Pain-free at this time -NPO after midnight -CTA chest reports "Mild bilateral hilar lymphadenopathy may be reactive. As malignancy can also have this appearance it is recommended that the patient have a follow-up CT scan in 3 months for reevaluation." Pancytopenia Thrombocytopenia Leukopenia -Dr. Ramsay consulted -Daily CBC -Reverse precautions Lupus -Continue CellCept, will need to take his own Seizure disorder -Continue XCOPI -Patient will need to take his own as we do not have this medication -Last seizure around 1 month ago Hypertension Hyperlipidemia Neuropathy Home medications continued with hold parameters DVT PPX: SCDs given thrombocytopenia Code status: Full code Discharge Plan: Home Plan to discharge in: 24 Hours <Pat Cornejo - Last Filed: 10/09/24 18:27> Patient was seen and examined. Events of the last 24 hours have been noted. Spoke with with CARTER regarding patient's clinical picture after evaluating and examining the patient independently. I performed a substantial part of the MDM during this patient's care today. I personally made or approved the documented management plan and acknowledge its risk of complications. I agree with the findings and documentation provided in the CARTER's notes. <Yi Trotter - Last Filed: 10/11/24 00:13>
--- NOTE | 2024-10-10 17:24 | P.PN ---
Date of Service: 10/09/24 Subjective Stress test showing "mild stress-induced ischemia suspected inferior wall " Will need a heart cath on Saturday per Dr. Brian LUND 10 point ROS as noted above, otherwise negative Physical Exam General: AAO x3, NAD HEENT: Atraumatic, PERRLA, EOMI Respiratory: symmetrical chest wall movement, on RA Cardiovascular: NSR, Normal S1 S2 Gastrointestinal: Normal bowel sounds, ND NT Neurological: Normal speech, Normal strength at 5/5 x4 extr Lymphatics: No axilla or inguinal lymphadenopathy Vitals Reviewed Problem list Chest pain rule out ACShistory of CAD Mild bilateral hilar lymphadenopathy Lupus Pancytopenia Thrombocytopenia Leukopenia Seizure disorder Hypertension Hyperlipidemia Neuropathy Assessment and Plan Chest pain rule out ACShistory of CAD Mild bilateral hilar lymphadenopathy -Had 3 stents in August 2023 at [facility] -Continue Effient, aspirin, statin, metoprolol -Questionable history of CHF, he does take Entresto but not on any diuretics -No previous echo is available for review, echocardiogram reports EF 50-55%, trace mitral and tricuspid reguritation -Cardiology consulted - stress test in the AM -Mild chest pain -plan for heart cath on saturday -CTA chest reports "Mild bilateral hilar lymphadenopathy may be reactive. As malignancy can also have this appearance it is recommended that the patient have a follow-up CT scan in 3 months for reevaluation." Pancytopenia Thrombocytopenia Leukopenia -Dr. Ramsay consulted -Daily CBC -Reverse precautions Lupus -Continue CellCept, will need to take his own Seizure disorder -Continue XCOPI -Patient will need to take his own as we do not have this medication -Last seizure around 1 month ago Hypertension Hyperlipidemia Neuropathy Home medications continued with hold parameters DVT PPX: SCDs given thrombocytopenia Code status: Full code Discharge Plan: Home Plan to discharge in: 2 days <Pat Cornejo - Last Filed: 10/10/24 17:13> Patient was seen and examined. Events of the last 24 hours have been noted. Spoke with with CARTER regarding patient's clinical picture after evaluating and examining the patient independently. I performed a substantial part of the MDM during this patient's care today. I personally made or approved the documented management plan and acknowledge its risk of complications. I agree with the findings and documentation provided in the CARTER's notes. <Yi Trotter - Last Filed: 10/11/24 00:12>
[2024-10-11 06:28] LABS: Absolute Lymphocytes (CBC) 0.5 K/uL (0.7-4.9); Absolute Monocytes 0.1 K/uL (0.1-1.3); Absolute Neutrophil 3.1 K/uL (1.8-8.0); Basophils % 0.2 % (0-1.3); Eosinophils % 0.1 % (0-4.4); Hematocrit 36.1 % (39.6-49.0); Hemoglobin 12.7 g/dL (13.6-17.9); Lymphocytes % 12.4 % (15.3-44.8); MCH 31.2 pg (27.0-35.0); MCHC 35.1 g/dL (32.0-36.0); MCV 88.9 fL (80-100); MPV 9.4 fL (7.6-11.3); Monocytes % 3.9 % (3.3-12.3); Neutrophils % 83.4 % (41.7-73.7); Nucleated Red Blood Cells % 0.2 % (0-0); Platelets 104 thou/uL (152-406); RBC Red Blood Cell Count 4.06 M/uL (4.33-5.43)
[2024-10-11 06:41] LABS: Anion Gap 7.1 mEq/L (5.0-15.0); Magnesium 2.3 mg/dL (1.6-2.4); Phosphorus 3.5 mg/dL (2.5-4.9); Potassium 4.1 mEq/L (3.5-5.1)
--- NOTE | 2024-10-11 14:02 | P.PN ---
Date of Service: 10/11/24 Subjective continues to c/o chest pain platelets improved, plan for heart cath Thursday 10/12 ROS 10 point ROS as noted above, otherwise negative Physical Exam General: Alert and oriented x3, NAD HEENT: Atraumatic, PERRLA, EOMI Respiratory: nonlabored breathing, on RA Cardiovascular: RRR, Normal S1 S2, no murmur noted Gastrointestinal: Normal bowel sounds, soft on palpation Neurological: Normal speech, Normal strength at 5/5 x4 extr Lymphatics: No axilla or inguinal lymphadenopathy Vitals Reviewed Problem list Chest pain rule out ACShistory of CAD Mild bilateral hilar lymphadenopathy Lupus Pancytopenia Thrombocytopenia Leukopenia Seizure disorder Hypertension Hyperlipidemia Neuropathy Assessment and Plan Chest pain rule out ACShistory of CAD Mild bilateral hilar lymphadenopathy -Had 3 stents in August 2023 at [facility] -Continue Effient, aspirin, statin, metoprolol -Questionable history of CHF, he does take Entresto but not on any diuretics -No previous echo is available for review, echocardiogram reports EF 50-55%, trace mitral and tricuspid reguritation -Cardiology consulted - stress test in the AM -Mild chest pain -plan for heart cath on saturday -CTA chest reports "Mild bilateral hilar lymphadenopathy may be reactive. As malignancy can also have this appearance it is recommended that the patient have a follow-up CT scan in 3 months for reevaluation." Pancytopenia Thrombocytopenia Leukopenia-improved -Dr. Ramsay consulted -Daily CBC -Reverse precautions Lupus -Continue CellCept, will need to take his own Seizure disorder -Continue XCOPI -Patient will need to take his own as we do not have this medication -Last seizure around 1 month ago Hypertension Hyperlipidemia Neuropathy Home medications continued with hold parameters DVT PPX: SCDs given thrombocytopenia Code status: Full code Discharge Plan: Home Plan to discharge in: 2 days <Pat Cornejo - Last Filed: 10/11/24 13:53> Patient was seen and examined. Events of the last 24 hours have been noted. Spoke with with CARTER regarding patient's clinical picture after evaluating and examining the patient independently. I performed a substantial part of the MDM during this patient's care today. I personally made or approved the documented management plan and acknowledge its risk of complications. I agree with the findings and documentation provided in the CARTER's notes. Planning for cardiac catheterization in AM. Pancytopenia has improved. <Yi Trotter - Last Filed: 10/11/24 21:24>
--- NOTE | 2024-10-11 17:54 | PN ---
Date of Progress Note: 10/11/2024 Subjective: Seen by bedside. He is doing well. No chest pain today. Review of Systems: No chest pain. No nausea, vomiting, or diarrhea. No abdominal pain. All other systems were reviewe d, they were negative. Physical Examination: Vital Signs: Reviewed. Head and Neck: Pupils are equal, reactive to light. Intact eye movements. No JVD. No cervical lym phadenopathy. Neck is supple. Thyroid is not enlarged. Lungs: Clear to auscultation bilaterally. No rhonchi, wheezing, or crackles. No accessory muscle u se Heart: Regular rate and rhythm. No extra sounds. Abdomen: Soft, nontender. Bowel sounds positive. No organomegaly. No masses or hernia. No rigidi ty or rebound. Extremities: No edema, clubbing, or cyanosis. Intact pulses. Skin: No rash. No nodule. Neurologic: Alert, awake, and oriented x3. No acute focal deficits appreciated. Investigations: BUN is 11, creatinine 0.78, and hemoglobin is 12.7. Assessment And Recommendations: 1. Chest pain with positive stress test in the inferior wall. Keep NPO past midnight. Plan for armani nary angiogram tomorrow. 2. Pancytopenia, but his white blood cell count now is normal. Platelet count is acceptable. I kely beard he is safe to have coronary angiogram tomorrow. 3. Dyslipidemia, on Lipitor, to continue. SR/MODL Voice ID: [id number] Report ID: [id number]
[2024-10-11] MEDS ORDERED: HYDRALAZINE HCL 20 MG/ML VIAL IV PRN (17:57)
[2024-10-12 06:02] LABS: Absolute Lymphocytes (CBC) 0.6 K/uL (0.7-4.9); Absolute Monocytes 0.2 K/uL (0.1-1.3); Basophils % 0.1 % (0-1.3); Hematocrit 36.7 % (39.6-49.0); Hemoglobin 12.8 g/dL (13.6-17.9); Lymphocytes % 11.8 % (15.3-44.8); MCH 31.1 pg (27.0-35.0); MPV 8.9 fL (7.6-11.3); Monocytes % 5.2 % (3.3-12.3); Neutrophils % 82.9 % (41.7-73.7); Platelets 112 thou/uL (152-406); RBC Red Blood Cell Count 4.12 M/uL (4.33-5.43); Red Cell Distribution Width 12.8 % (12.1-15.2)
[2024-10-12 06:09] LABS: PT Prothrombin Time 11.2 SECONDS (10-13.0); PTT, Activated Partial Thromb 23.4 SECONDS (27.2-37.4); Protime INR 0.98
[2024-10-12 06:24] LABS: Anion Gap 5.9 mEq/L (5.0-15.0); Magnesium 2.3 mg/dL (1.6-2.4); Phosphorus 3.9 mg/dL (2.5-4.9); Potassium 3.9 mEq/L (3.5-5.1)
[2024-10-12 08:40] VITALS: TEMP 97.8
--- NOTE | 2024-10-12 09:21 | TREADPHA ---
DX: CHEST PAIN Date of Study: 10/09/2024 Ht: 6' 1 " Wt: 220 lb 0 oz Consulting Physician: ALICIA MEDICATIONS: ASPIRIN, LIPITOR, NEURONTIN, TOPROL XL HISTORY: 59 YEAR OLD MALE WITH COMPLAINTS OF CHEST PAIN. HISTORY OF HYPERTENSION, HYPERLIPIDEMIA, MYOCARDIAL INFARCTION, CORONARY ARTERY DISEASE, LUPUS PHYSICIAL EXAMINATION: RESTING B.P.: 133/77 RESTING H.R.: 67 RESTING EKG: NORMAL SINUS RHYTHM PROTOCOL: PHARMACOLOGIC EXERCISE TIME: 3:30 B.P. AT [place] STRESS: 152/74 IMPRESSION: LEXISCAN INJECTED. CARDIOLITE INJECTED - SEE NUCLEAR MEDICINE REPORT. MILD CHEST PAIN DURING AND SHORTNESS OF BREATH. NO VENTRICULAR TACHYCARDIA. MILD SHORTNESS OF BREATH NOTED. NO SUPRAVENTRICULAR TACHYCARDIA. NO ELECTROCARDIOGRAM CHANGES OF ISCHEMIA WITH LEXISCAN.
[2024-10-12] MEDS ORDERED: NA CHLORIDE 0.9% 500 ML ONE (10:35)
[2024-10-12] MEDS ORDERED: LIDOCAINE 1% 20 ML MDV ONE (10:50)
[2024-10-12] MEDS ORDERED: HEPA 1000U/500MLS 2,000 UNIT/1,000 ML BAG IV ONE (10:50)
[2024-10-12] MEDS ORDERED: HEPARIN 5000 UNIT/ML 1 ML VIAL ONE (10:51)
[2024-10-12] MEDS ORDERED: FENTANYL CITR 100 MCG/2 ML ONE (11:06)
[2024-10-12] MEDS ORDERED: MIDAZOLAM HCL 2 MG/2 ML INJ ONE (11:06)
--- NOTE | 2024-10-12 11:45 | P.PN ---
Subjective Date of Service: 10/12/24 Chief Complaint: Chest pain Subjective: No new changes, No C/O voiced, Tolerating diet, Ambulating, Improving Review of Systems 10-point ROS is otherwise unremarkable Physical Examination - Vital Signs Temperature: 97.8 F Blood Pressure: 132/92 Pulse: 55 Respirations: 16 Pulse Ox (%): 98 - Physical Exam General: Alert, In no apparent distress HEENT: Atraumatic, PERRLA, EOMI Neck: Supple, JVD not distended Respiratory: Clear to auscultation bilaterally, Normal air movement Cardiovascular: Regular rate/rhythm, Normal S1 S2 Gastrointestinal: Normal bowel sounds, No tenderness Musculoskeletal: No tenderness Integumentary: No rashes Neurological: Normal speech, Normal tone, Normal affect Lymphatics: No axilla or inguinal lymphadenopathy - Studies Medications List Reviewed: Yes Assessment And Plan - Current Problems (Diagnosis) (1) Unstable angina Current Visit: Yes Status: Acute Plan: Patient with PMH of CAD, PCI x3 having unstable angina, patient had an abnormal stress test followed by coronary angiogram today that shown patent stents ASA 81 mg daily Effient 10 mg daily or plavix 75 mg daily Lipitor 40 mg daily Echo shows normal LV systolic function, wall motion and Grade 1 DD.
[2024-10-12] MEDS: POTASSIUM CL SA 10 MEQ TAB PO ONE (12:00)
--- NOTE | 2024-10-12 12:07 | EKG ---
Test Date: 2024-10-09 Test Time: 21:50:02 Awning Hanger Supervisor: CARLOS MEASUREMENT RESULTS: Intervals: Rate: 66 PA: 168 QRSD: 112 QT: 416 QTc: 436 [place]: P: 20 PA: 168 QRS: -14 T: -3 INTERPRETIVE STATEMENTS: Normal sinus rhythm Incomplete right bundle branch block Borderline ECG Compared to ECG 10/09/2024 14:43:17 Incomplete right bundle-branch block now present Electronically Signed On 10-12-24 12:02:05 CDT by Saulo Farah
--- NOTE | 2024-10-12 13:03 | OP ---
Date of Procedure: 10/12/2024 Surgeon: Saulo Farah Procedure Performed: Selective coronary angiogram. Indication For Procedure: Unstable angina, abnormal stress test. Complications: None. Estimated Blood Loss: Less than 50 cc. Access: Right radial, closed by TR band. Sedation Time: 20 minutes with 1 of Versed and 25 of fentanyl. Description Of Procedure: After risks, and benefits, and alternatives were explained to patient, pat ient agreed to proceed with procedure and signed informed consent. The patient was brought back to [facility] laboratory director, prepped and draped in sterile fashion. A time-out was performed. Sedation was administ ered. Next, right radial access was obtained using ultrasound-guided micropuncture technique. [place] 4.0 catheter was advanced over a J-wire to the aortic root. Selective angiogram was done using the same catheter. At the end of procedure, catheter was removed over a J-wire. Sheath was removed. TR band was applied. Hemostasis was achieved. Then patient was moved back to recovery in stable condi tion. Findings: 1. Left main normal. 2. LAD; proximal mild luminal irregularities with mid stent patent and mild luminal irregularities. 3. Diagonal 1 with mid stent patent. 4. Left circ; mild luminal irregularities. 5. RCA; ostial to proximal stent is patent, then mild luminal irregularities. Assessment And Plan: Patent LAD/diagonal and RCA stents. Plan is to continue medical management. JONATHAN/KRISTEN Voice ID: [id number] Report ID: [id number]
--- NOTE | 2024-10-12 13:42 | P.DS ---
Admission Date: 10/06/24 Discharge Date: 10/12/24 Disposition: ROUTINE DISCHARGE Discharge Condition: GOOD Reason for Admission: Chest pain Brief History of Present Illness: Diagnosis Chest pain rule out ACShistory of CAD Mild bilateral hilar lymphadenopathy Lupus Pancytopenia Thrombocytopenia Leukopenia Seizure disorder Hypertension Hyperlipidemia Neuropathy HPI 10/05/24 59-year-old male with history of hypertension, CAD, lupus, seizure disorder presents to the emergency department chief complaint of chest pain, shortness of breath. He reports that symptoms have been intermittent in nature and ongoing since late last week worse the past couple of days. Of note he was seen at [facility] in [place] and had 3 stents placed in August 2023. He was evaluated in the emergency department his initial high-sensitivity troponin was 24 chest x-ray is negative for acute findings, patient does have thrombocytopenia with a platelet count of 89 he reports this is similar to his baseline. Chest x-ray is negative for acute findings, ED provider wishes to admit patient for further evaluation and management. Hospital Course: Devendra was admitted and treated for the following diagnosis Chest pain rule out ACShistory of CAD Mild bilateral hilar lymphadenopathy -Had 3 stents in August [address] [facility] [place] -Continued Effient, aspirin, statin, metoprolol -Questionable history of CHF, he does take Entresto but not on any diuretics -No previous echo is available for review, echocardiogram reports EF 50-55%, trace mitral and tricuspid reguritation -Cardiology consulted performed [facility] today (10/12) showing clear coronaries and patent stents -Mild chest pain stable -CTA chest reports "Mild bilateral hilar lymphadenopathy may be reactive. As malignancy can also have this appearance it is recommended that the patient have a follow-up CT scan in 3 months for reevaluation." Pancytopenia-resolved Thrombocytopenia-resolved Leukopenia-improved -Dr. Ramsay consulted -Daily CBC showed resolution -Reverse precautions observed Lupus -Continued CellCept Seizure disorder -Continued XCOPI -Patient will need to take his own as we do not have this medication -Last seizure around 1 month ago Hypertension Hyperlipidemia Neuropathy Home medications continued On 10/12/24, Devendra was seen on morning rounds and deemed hemodynamically stable. C today showing clear coronaries and patent stents. Dr. Farah has evaluated and cleared for discharge with a follow up visit in one week and continued medical management. General: AAO x3, NAD Respiratory: nonlabored breathing, on RA Cardiovascular: Regular rate and rhythm, Normal S1 S2, no murmur noted Gastrointestinal: Normal bowel sounds, soft on palpation, nontender Neurological: Normal speech, Normal strength at 5/5 x4 extr Lymphatics: No axilla or inguinal lymphadenopathy Vital Signs/Physical Exam: Temp Pulse Resp BP Pulse Ox 97.8 F 52 16 108/62 98 10/12/24 13:15 10/12/24 13:15 10/12/24 13:15 10/12/24 13:15 10/12/24 11:45 Laboratory Data at Discharge: WBC 4.80 thou/uL (4.3-10.9) 10/12/24 05:23 Hgb 12.8 g/dL (13.6-17.9) L 10/12/24 05:23 Hct 36.7 % (39.6-49.0) L 10/12/24 05:23 Plt Count 112 thou/uL (152-406) L 10/12/24 05:23 PT 11.2 SECONDS (10-13.0) 10/12/24 05:23 INR 0.98 10/12/24 05:23 APTT 23.4 SECONDS (27.2-37.4) L 10/12/24 05:23 Sodium 140 mEq/L (136-145) 10/12/24 05:23 Potassium 3.9 mEq/L (3.5-5.1) 10/12/24 05:23 BUN 15 mg/dL (7-18) 10/12/24 05:23 Creatinine 0.70 mg/dL (0.70-1.30) 10/12/24 05:23 Glucose 183 mg/dL (74-106) H 10/12/24 05:23 Phosphorus 3.9 mg/dL (2.5-4.9) 10/12/24 05:23 Magnesium 2.3 mg/dL (1.6-2.4) 10/12/24 05:23 Total Bilirubin 0.6 mg/dL (0.2-1.0) 10/05/24 14:45 AST 21 U/L (15-37) 10/05/24 14:45 ALT 17 U/L (16-61) 10/05/24 14:45 Alkaline Phosphatase 79 U/L (45-117) 10/05/24 14:45 Home Medications: Alprazolam [Xanax] 1 tab PO BEDTIME PRN 10/06/24 Atorvastatin Calcium [Lipitor] 1 tab PO DAILY 10/06/24 Cenobamate [Xcopri] 1 tab PO DAILY 10/06/24 Folic Acid 1 tab PO BID 10/06/24 Hydrocodone 10/APAP 325 [[place] 10/325*] 1 tab PO Q6H PRN 10/06/24 Metoprolol Succinate 1 tab PO DAILY 10/06/24 Potassium Chloride 1 tab PO DAILY 10/06/24 Sacubitril/Valsartan [Entresto 24 mg-26 mg Tablet] 1 tab PO BID 10/06/24 Diet: AHA Activity: Fall precautions Followup: NONE,NONE [Primary Care Provider] -
[2024-10-12 14:11] VITALS: BP 113/61; O2SAT 96
== END 2024-10-12 17:55 | disposition home or self-care (01) | DRG 287 ==
LOC: ER 13:58 → ERHOLD 16:16 → 4TH 19:49 → OBSVTOIN 10-06 17:58
PROVIDERS: ADMIT Hospitalist; ATTEND Hospitalist
PROC: B2111ZZ Fluoroscopy of Multiple Coronary Arteries using Low Osmolar Contrast (ICD-10-PCS; principal; 2024-10-12)
DX: I25.110 Atherosclerotic heart disease of native coronary artery with unstable angina pectoris (principal); D61.818 Other pancytopenia; I24.9 Acute ischemic heart disease, unspecified; G40.909 Epilepsy, unspecified, not intractable, without status epilepticus; M32.9 Systemic lupus erythematosus, unspecified; I10 Essential (primary) hypertension; E78.5 Hyperlipidemia, unspecified; G62.9 Polyneuropathy, unspecified; R59.0 Localized enlarged lymph nodes; I25.2 Old myocardial infarction; Z95.5 Presence of coronary angioplasty implant and graft; Z11.52 Encounter for screening for COVID-19
CPT/HCPCS: 36415; 71045; 71275; 76937; 78452; 80048; 80076; 83036; 83735; 83880; 84100; 84439; 84443; 84484; 85025; 85610; 85730; 87428; 93005; 93017; 93306; 93454; 96360; 96361; 99152; 99153; 99285; A9500; C1893; G0378; J1644; J2003; J2250; J2543; J2785; J2919; J3010; J7040; Q9967